=== PATIENT | female | born 1955 | race Caucasian/White ===

== ENCOUNTER → 2016-07-16 | Outpatient (CLI) | payer BC ==
[2016-07-16 08:09] LABS: BASOPHILS % (AUTO) 0 % (0-2); EOSINOPHILS # (AUTO) 0.4 10^3uL; EOSINOPHILS % (AUTO) 8 % (0-4); LYMPHOCYTES # (AUTO) 1.1 X10^3; MEAN CORPUSCULAR VOLUME 97 FL (80-100); MEAN PLATELET VOLUME 10.6 FL (6.0-9.5); MONOCYTES # (AUTO) 0.5 X10^3; MONOCYTES % (AUTO) 9 % (3-11); NEUTROPHILS # (AUTO) 3.5 X10^3; NEUTROPHILS % (AUTO) 63 % (51-67); PLATELET COUNT 156 10^3uL (150-450); WHITE BLOOD COUNT 5.57 10^3uL (4.0-11.0)
[2016-07-16 08:10] LABS: MEAN CORPUSCULAR HEMOGLOBIN 31.9 PG (26.0-34.0)
[2016-07-16 08:29] LABS: ALBUMIN 3.8 g/dL (3.4-5.0); ANION GAP 15.7 MEQ/L (3-15)
[2016-07-17 07:24] LABS: TOTAL VOLUME,URINE 2950 ML
== END ==
LOC: LAB 07:55
PROVIDERS: ATTEND Internal Medicine Nephrology
DX: N18.4 Chronic kidney disease, stage 4 (severe) (principal); N03.1 Chronic nephritic syndrome with focal and segmental glomerular lesions; E87.2 Acidosis; E83.39 Other disorders of phosphorus metabolism
CPT/HCPCS: 36415; 80069; 83970; 84156; 84550; 85025

== ENCOUNTER → 2016-07-23 | Outpatient (CLI) | payer BC ==
[2016-07-23 10:47] LABS: MEAN CORPUSCULAR HEMOGLOBIN 31.9 PG (26.0-34.0); MEAN CORPUSCULAR HGB CONC 33.5 g/dL (31.0-37.0); MEAN PLATELET VOLUME 10.7 FL (6.0-9.5); WHITE BLOOD COUNT 7.02 10^3uL (4.0-11.0)
[2016-07-23 11:25] LABS: ALBUMIN 3.8 g/dL (3.4-5.0); TOTAL PROTEIN 7.2 g/dL (6.4-8.5)
== END ==
LOC: LAB 10:16
PROVIDERS: ATTEND Physician Assistant Medical
DX: R05 Cough (principal); R50.9 Fever, unspecified
CPT/HCPCS: 36415; 71020; 80076; 85027

== ENCOUNTER → 2016-09-10 | Outpatient (CLI) | payer BC ==
[~2016-09-10] MED LIST: ALLO300T2 PO; AMLO10TA82 PO; ASPI81TA42 PO; BUME0.5T3 PO; EST45C VG; LEVO88TA4 PO; LSRT50T PO; MELA3TAB34 PO; MULT1TAB63 PO; NFBIOT1000 PO; OMEG10005 PO; OMEP20TA PO; SMV10T PO; URSO300C3 PO
--- NOTE | 2016-09-10 09:09 | Diagnostic Imaging Report ---
PROCEDURE: US abdomen complete. TECHNIQUE: Multiple real-time grayscale images were obtained over the abdomen in various projections. INDICATION: Abdominal pain, primary biliary cirrhosis. COMPARISON: 12/14/2008. DISCUSSION: Sonographic evaluation of the abdomen was performed. The liver is normal in echotexture and size. There is a questionable nodular morphology to the contour which could be seen with chronic liver disease. 8 mm hyperechoic focus within the right hepatic lobe could represent a small hemangioma though is indeterminate. At a minimum, recommend 3-6 month sonographic followup to document stability. Otherwise contrast-enhanced CT or MRI of the abdomen could be performed for more definitive evaluation. The main portal vein is normal in caliber with normal hepatopetal blood flow. The gallbladder is surgically absent. No evidence of intra or extrahepatic biliary duct dilatation. The common bile duct is normal measuring 0.5 cm. The pancreas appears normal as visualized. The spleen is mildly enlarged measuring 13.5 cm. The visualized aorta and IVC appear within normal limits. The bilateral kidneys appear normal in echotexture and size without evidence of hydronephrosis or renal mass. The right kidney measures 10 cm. The left kidney measures 12.7 cm. Cystic changes are noted within the bilateral kidneys measuring up to 3.5 cm on the right and 2.3 cm on the left, statistically benign. There is no ascites or abnormal bowel loops identified. No sonographic Cheng sign was reported. IMPRESSION: 1. 8 mm hyperechoic nodule within the right hepatic lobe could represent a small hemangioma though is indeterminate. See above recommendations. 2. Mild splenomegaly. 3. Cystic changes of the bilateral kidneys. 4. Status post cholecystectomy. Dictated by: Dictated on workstation # [id number]
== END ==
LOC: RAD 08:16
PROVIDERS: ATTEND Internal Medicine
DX: K74.3 Primary biliary cirrhosis (principal)
CPT/HCPCS: 76700

== ENCOUNTER → 2016-10-05 | Outpatient (CLI) | payer BC | LOC: LAB 08:50 | PROVIDERS: ATTEND Internal Medicine | DX: K74.3 Primary biliary cirrhosis (principal) | CPT/HCPCS: 36415; 85610 ==

== ENCOUNTER → 2016-10-23 | Outpatient (CLI) | payer BC ==
[2016-10-23 10:19] LABS: MEAN CORPUSCULAR HGB CONC 33.1 g/dL (31.0-37.0); MEAN CORPUSCULAR VOLUME 95 FL (80-100); MEAN PLATELET VOLUME 10.7 FL (6.0-9.5); PLATELET COUNT 136 10^3uL (150-450); WHITE BLOOD COUNT 5.94 10^3uL (4.0-11.0)
[2016-10-23 10:21] LABS: MEAN CORPUSCULAR HEMOGLOBIN 31.3 PG (26.0-34.0)
[2016-10-23 10:32] LABS: ALBUMIN 3.8 g/dL (3.4-5.0); CALCULATED IONIZED CALCIUM 4.2 mg/dL (3.8-4.6); MAGNESIUM* 2.1 mg/dL (1.6-2.3); TOTAL PROTEIN 7.2 g/dL (6.4-8.5)
--- NOTE | 2016-10-23 10:34 | Diagnostic Imaging Report ---
Indication: 61-year-old postmenopausal female with history of chemotherapy. Comparison: None available. Baseline examination. Technique: DEXA of the lumbar spine and bilateral hips was performed. Findings: The L2-L4 vertebrae were used for assessment of the lumbar spine. The bone mineral density for the total lumbar spine is 1.286 g/cm2, and the T score is 0.7, and Z-score is 1.6 . The left total femur has a bone density of 0.919 g/cm2, and the T score is -0.7, and Z-score is -0.1 . The right femoral neck has a bone density of 0.931 g/cm2, and the T score is -0.4, and Z-score is 0.5 . Impression: 1. Normal bone mineral density. Dictated by: Dictated on workstation # [id number]
[2016-10-23 11:22] LABS: BAND NEUTROPHILS % 0 % (0-6); EOSINOPHILS % 9 % (0-4); LYMPHOCYTES # 1.1 #; MONOCYTES # 0.5 #; MONOCYTES % 9 % (3-11); RBC MORPH NORMAL (NORMAL); SEGMENTED NEUTROPHILS % 63 % (51-67); TOTAL CELLS COUNTED 100
== END ==
LOC: RAD 09:48
PROVIDERS: ATTEND Internal Medicine Hematology & Oncology
DX: C50.211 Malignant neoplasm of upper-inner quadrant of right female breast (principal); Z17.0 Estrogen receptor positive status [ER+]; Z79.899 Other long term (current) drug therapy; Z78.0 Asymptomatic menopausal state
CPT/HCPCS: 36415; 77080; 80053; 83615; 83735; 84100; 85007; 85027; 86300